=== PATIENT | female | born 1980 | race Caucasian/White ===

== ENCOUNTER 2019-05-03 08:15 | Emergency (ER) | payer OTHER ==
[~2019-05-03] VITALS: Ht 162.6 cm; Wt 88.5 kg
[~2019-05-03 08:15] MED LIST: LEVSIN0.125 MG PO; OSEL75CA PO; PROTONIX40 MG PO; ZANTAC300 MG PO; ZOFRAN4 MG PO
== END 2019-05-03 11:09 | disposition home or self-care (01) ==
LOC: ER
DX: L50.8 Other urticaria (principal); B34.9 Viral infection, unspecified